=== PATIENT | female | born 1955 | race Caucasian/White ===

== ENCOUNTER 2019-12-16 07:37 | Day surgery (SDC) | payer BC ==
[~2019-12-16] VITALS: Ht 157.5 cm; Wt 65.7 kg
[~2019-12-16 07:37] MED LIST: ASPI325 PO; Natrol Alpha 3300 MG PO
[2019-12-16] MEDS ORDERED: VITAMIN D325 MC3 PO (08:07)
== END 2019-12-16 10:04 | disposition home or self-care (01) ==
LOC: ORSCSDS 07:37
PROVIDERS: Student in an Organized Health Care Education/Training Program
PROC: 0DBN8ZX Excision of Sigmoid Colon, Via Natural or Artificial Opening Endoscopic, Diagnostic (ICD-10-PCS; principal; 2019-12-16 09:00)
PROC: 0DBK8ZX Excision of Ascending Colon, Via Natural or Artificial Opening Endoscopic, Diagnostic (ICD-10-PCS; principal; 2019-12-16 09:00)
DX: Z12.11 Encounter for screening for malignant neoplasm of colon (principal); D12.2 Benign neoplasm of ascending colon; K63.5 Polyp of colon; E11.9 Type 2 diabetes mellitus without complications
CPT/HCPCS: 82947; 88305; J0330; J0461; J2405; J2704; J7120

== ENCOUNTER → 2020-03-06 | Outpatient (CLI) | payer BC ==
[~2020-03-06] MED LIST changes: +VITAMIN D325 MC3 PO
== END | disposition home or self-care (01) ==
LOC: LAB SHORT 14:20 → PLD 14:20
DX: N84.1 Polyp of cervix uteri (principal)
CPT/HCPCS: 88305

== ENCOUNTER → 2020-03-15 | Outpatient (CLI) | payer BC | END | disposition home or self-care (01) | LOC: LAB SHORT 16:48 → LAB EV 16:48 | DX: N39.0 Urinary tract infection, site not specified (principal) | CPT/HCPCS: 87077; 87086; 87186 ==

== ENCOUNTER → 2021-07-06 | Outpatient (CLI) | payer SELFPAY ==
[2021-07-07 16:11] LABS: HPV 16 Negative (Negative); HPV 18 Negative (Negative); HPV OTHER HR TYPES Negative (Negative)
== END | disposition home or self-care (01) ==
LOC: LAB SHORT 16:24
PROVIDERS: Obstetrics & Gynecology
DX: Z01.419 Encounter for gynecological examination (general) (routine) without abnormal findings (principal)
CPT/HCPCS: 87624; G0123

== ENCOUNTER 2024-12-16 07:34 | Day surgery (SDC) | payer OTHER ==
[~2024-12-16] VITALS: Ht 157.5 cm; Wt 67.6 kg
[2024-12-16] MEDS ORDERED: METFORMIN HCL500 M2 (07:56)
[2024-12-16] MEDS ORDERED: Lisinopril2.5 MG (07:56)
[2024-12-16] MEDS ORDERED: TIMO10T (07:56)
[2024-12-16 10:02] VITALS: BP 115/59
== END 2024-12-16 09:54 | disposition home or self-care (01) ==
LOC: ORSCSDS 07:34
PROVIDERS: Internal Medicine Gastroenterology
PROC: 0DBN8ZX Excision of Sigmoid Colon, Via Natural or Artificial Opening Endoscopic, Diagnostic (ICD-10-PCS; principal; 2024-12-16 09:30)
DX: R19.4 Change in bowel habit (principal); Z86.0101 Personal history of adenomatous and serrated colon polyps; K63.5 Polyp of colon; Z79.82 Long term (current) use of aspirin; Z79.899 Other long term (current) drug therapy
CPT/HCPCS: 82947; 88305; J2704; J7120